=== PATIENT | female | born 1995 | race Two or more races ===

== ENCOUNTER 2024-04-04 01:48 | Emergency (ER) | payer BC ==
[~2024-04-04] VITALS: Ht 175.3 cm; Wt 56.7 kg
[2024-04-04] MEDS ORDERED: OxyCODONE HCL/APAP UD (PERCOCET) PO STA (02:59)
[2024-04-04] MEDS ORDERED: KETOROLAC TROMETHAMINE 60 MG VIAL IM STA (02:59)
== END 2024-04-04 03:18 | disposition home or self-care (01) ==
LOC: ER 01:50
DX: S42.031A Displaced fracture of lateral end of right clavicle, initial encounter for closed fracture (principal); W18.39XA Other fall on same level, initial encounter; Y93.89 Activity, other specified; Y92.89 Other specified places as the place of occurrence of the external cause